=== PATIENT | female | born 1990 | race Caucasian/White ===

== ENCOUNTER 2019-09-19 05:25 | Emergency (ER) | payer BC ==
[2019-09-19] MEDS ORDERED: Lidocaine 1% with EPINEPHrine 1:100,000 20 ML MDV INJECT ONE (05:49)
[2019-09-19] MEDS ORDERED: Diphtheria,Pertussis(Acell),Tetanus Vaccine 0.5 ML Syringe IM ONE (05:49)
[2019-09-19] MEDS ORDERED: Bupivacaine 0.5% 10 ML SDV INJECT ONE (05:49)
--- NOTE | 2019-09-19 05:51 | EDM.PDOC ---
ED HPI GENERAL MEDICAL PROBLEM - General Chief Complaint: Laceration Stated Complaint: LT THUMB LACERATION Time Seen by Provider: 09/19/19 05:41 Source of Information: Reports: Patient History Limitations: Reports: No Limitations - History of Present Illness INITIAL COMMENTS - FREE TEXT/NARRATIVE: Ms. Mccord is a very pleasant 29-year-old woman with no chronic medical problems , who states that she accidentally stabbed her left hand with a kitchen knife while meal prepping last night around 19:30. She cleaned the wound and put a Band-Aid on it, not realizing that it required sutures, however, this morning she was able to see that the wound was larger than she anticipated. She is otherwise uninjured. The patient does not recall when her last tetanus vaccination was. She thinks it was under 10 years, but she is not sure. She agreed to receive a tetanus booster here today. The patient's PCP is Jamila Carcamo NP. She received an influenza vaccine this season. - Related Data Allergies Allergy/AdvReac Type Severity Reaction Status Date / Time No Known Allergies Allergy Verified 09/19/19 05:35 Home Meds: Home Meds Norgestimate-Ethinyl Estradiol [Tri-Sprintec Tablet] 1 tab PO DAILY 09/19/19 [ History] Past Medical History - Past Surgical History HEENT Surgical History: Reports: Oral Surgery (wisdom teeth extraction) Social & Family History - Tobacco Use Smoking Status *Q: Never Smoker - Caffeine Use Caffeine Use: Reports: Coffee, Energy Drinks - Alcohol Use Alcohol Use History: Yes Alcohol Use Frequency: Socially - Recreational Drug Use Recreational Drug Use: No - Living Situation & Occupation Living situation: Reports: Single, Alone Occupation: Employed (Occupational therapist at [employer]) ED ROS GENERAL - Review of Systems Review Of Systems: Comprehensive ROS is negative, except as noted in HPI. ED EXAM, SKIN/RASH Exam: See Below Exam Limited By: No Limitations General Appearance: Alert, WD/WN, No Apparent Distress Extremities: Other (There is a subcentimeter irregular laceration to the dorsal aspect of the patient's left thumb webbing. The wound is clean, and not bleeding. The patient denies any tingling or numbness to either her thumb or second finger. 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 Vascular status of the left upper extremity is intact.) ED SKIN PROCEDURES - Laceration/Wound Repair Left Hand Appearance: Subcutaneous, Irregular, Clean Distal NVT: Neuro & Vascular Intact, No Tendon Injury Anesthetic Type: Local Local Anesthesia - Lidocaine (Xylocaine): 1% with EPI (50:50 admixture) Local Anesthesia - Bupivicaine (Marcaine): 0.5% Plain (50:50 admixture) Local Anesthetic Volume: Other (0.5 ml) Skin Prep: Providone-Iodine (Betadine) Exploration/Debridement/Repair: Wound Explored, In a Bloodless Field, Explored to Base, No Foreign Material Found Closed with: Sutures Lac/Wound length In cm: 1.0 Suture Size: 3-0 # of Sutures: 3 Suture Type: Nylon (Ethilon), Interrupted, Simple Drain Placement: No Sterile Dressing Applied: Nurse Tetanus Status Addressed: Yes Complications: No Course - Vital Signs Last Recorded V/S: Last Vital Signs Temp 36.2 C 09/19/19 05:32 Pulse 95 09/19/19 05:32 Resp 16 09/19/19 05:32 BP 147/90 H 09/19/19 05:32 Pulse Ox 100 09/19/19 05:32 - Orders/Labs/Meds Orders: Active Orders 24 hr Category Date Time Status Vaccines to be Administered [RC] PER UNIT ROUTINE Care 09/19/19 05:49 Ordered Meds: Medications Discontinued Medications Generic Name Dose Route Start Last Admin Trade Name Bonita PRN Reason Stop Dose Admin Bupivacaine HCl 10 ml 09/19/19 05:49 09/19/19 05:57 Sensorcaine-Mpf 0.5% INJECT 09/19/19 05:50 10 ml ONETIME ONE Administration Diphtheria/Tetanus/Acell Pertussis 0.5 ml 09/19/19 05:49 09/19/19 05:55 Adacel IM 09/19/19 05:50 0.5 ml .ONCE ONE Administration Lidocaine/Epinephrine 20 ml 09/19/19 05:49 09/19/19 05:57 Xylocaine 1% With Epinephrine 1:100,000 INJECT 09/19/19 05:50 20 ml ONETIME ONE Administration - Re-Assessments/Exams Free Text/Narrative Re-Assessment/Exam: 09/19/19 05:50 The laceration to the dorsal aspect of the patient's left thumb webbing will require sutures. 09/19/19 06:17 A sterile field was established. Local anesthetic using a 50:50 admixture of bupivacaine 0.5% without epinephrine and lidocaine 1% with epinephrine was infiltrated to good effect. The wound was then closed with 3 simple interrupted sutures using 3-0 Ethilon. The patient tolerated the procedure well. Sterile dressing per Arti HAWNG. The sutures should be ready for removal in 7 days. The patient will be given a tetanus vaccination prior to discharge. Departure - Departure Time of Disposition: 06:18 Disposition: Home, Self-Care 01 Condition: Good Clinical Impression: Laceration of left hand - Discharge Information *PRESCRIPTION DRUG MONITORING PROGRAM REVIEWED*: Not Applicable *COPY OF PRESCRIPTION DRUG MONITORING REPORT IN PATIENT ELYSIA: Not Applicable Referrals: Jamila Carcamo NP [Primary Care Provider] - Forms: ED Department Discharge Additional Instructions: You were seen in the emergency room after cutting the back of your left hand while food prepping. Your wound was closed with 3 simple interrupted sutures in the ER. Keep the wound clean with ordinary soap and water. Pat dry, then cover with a fresh Band-Aid, daily. The wound can get wet when you are cleaning it, but you should not soak your hand, such as in the tub or with swimming. The sutures should be ready for removal by 09/26/2019. The sutures can be removed at the walk-in clinic, by a nurse at your PCPs office, or in the ER. It is highly unlikely that your wound will become infected, however, if there are any concerns, such as inordinate pain, increased redness, or drainage, please return to the ER for reevaluation. *You were given a tetanus booster during your ER visit.* Sepsis Event Note - Evaluation Sepsis Screening Result: No Definite Risk - Focused Exam Vital Signs: Vital Signs Temp Pulse Resp BP Pulse Ox 09/19/19 05:32 36.2 C 95 16 147/90 H 100 Date Exam was Performed: 09/19/19 Time Exam was Performed: 06:21 - My Orders Last 24 Hours: My Active Orders 09/19/19 05:49 Vaccines to be Administered [RC] PER UNIT ROUTINE - Assessment/Plan Last 24 Hours: My Active Orders 09/19/19 05:49 Vaccines to be Administered [RC] PER UNIT ROUTINE
== END 2019-09-19 06:25 | disposition home or self-care (01) ==
LOC: JD.ED 05:25
DX: S61.412A Laceration without foreign body of left hand, initial encounter (principal); W26.0XXA Contact with knife, initial encounter
CPT/HCPCS: 12001; 90471; 90715; 99282; J3490